=== PATIENT | female | born 1930 | race Caucasian/White ===

== ENCOUNTER 2017-05-10 15:59 | Emergency (ER) | payer BC, OTHER ==
[2017-05-10 16:02] VITALS: BP 133/87
--- NOTE | 2017-05-10 16:03 | EDM.PDOC ---
ED HPI GENERAL MEDICAL PROBLEM - General Chief Complaint: Upper Extremity Injury/Pain Stated Complaint: FELL, COMING BY [facility] Time Seen by Provider: 05/10/17 16:03 Source of Information: Reports: Patient, EMS, RN, RN Notes Reviewed History Limitations: Reports: No Limitations - History of Present Illness INITIAL COMMENTS - FREE TEXT/NARRATIVE: Patient states she was at [facility] on a bus trip, when she missed the stool she was attempting to sit on. She states she did not hit her head, and did not lose consciousness. She denies headache, N/V, SOB, CP. States pain is in the left shoulder and upper left arm. Pain is rated at 8/10. Onset: Today, Sudden Onset Date: 05/10/17 Location: Reports: Upper Extremity, Left Quality: Reports: Sharp, Stabbing Improves with: Reports: None Worsens with: Reports: Movement Associated Symptoms: Reports: No Other Symptoms Left Upper Arm Pain Score (Numeric/FACES): 8 - Related Data Allergies Allergy/AdvReac Type Severity Reaction Status Date / Time codeine Allergy Chest Pain Verified 05/10/17 16:00 Sulfa (Sulfonamide Allergy Hives Verified 05/10/17 16:00 Antibiotics) Home Meds: Home Meds Aspirin [Ecotrin] 81 mg PO DAILY 05/10/17 [History] Hydrochlorothiazide 12.5 mg PO DAILY 05/10/17 [History] Rosuvastatin [Crestor] 10 mg PO DAILY 05/10/17 [History] Review of Systems - Review of Systems Review Of Systems: ROS reveals no pertinent complaints other than HPI. ED EXAM, GENERAL - Physical Exam Exam: See Below Exam Limited By: No Limitations General Appearance: Alert, WD/WN, Moderate Distress Eye Exam: Bilateral Eye: Normal Inspection Ears: Normal External Exam, Hearing Grossly Normal Nose: Normal Inspection Throat/Mouth: Normal Inspection, Normal Lips, Normal Teeth, Normal Gums, Normal Voice, No Airway Compromise Head: Atraumatic, Normocephalic Neck: Normal Inspection, Supple, Non-Tender, Full Range of Motion Respiratory/Chest: No Respiratory Distress, Lungs Clear, Normal Breath Sounds, No Accessory Muscle Use, Chest Non-Tender Cardiovascular: Normal Peripheral Pulses, Regular Rate, Rhythm, No Edema, No Gallop, No JVD, No Murmur, No Rub Peripheral Pulses: 2+: Radial (L), Radial (R) GI/Abdominal: Normal Bowel Sounds, Soft, Non-Tender (Female) Exam: Deferred Rectal (Female) Exam: Deferred Back Exam: Normal Inspection, Full Range of Motion Extremities: Arm Pain (focal pain on upper left humerus, minimal swelling. ), Limited Range of Motion Neurological: Alert, Oriented, Normal Cognition, No Motor/Sensory Deficits Psychiatric: Normal Affect, Normal Mood Skin Exam: Warm, Intact, Normal Color, No Rash Lymphatic: No Adenopathy ED TRAUMA EXTREMITY PROCEDURES - Splinting Left Upper Extremity Pre-Procedure NV Status: Normal Post-Procedure NV Status: Normal Splint Material: Sling Splint Design: Sling Applied & Form Fitted By: Provider, Nurse Provider Post-Splint Application NV Check: NV Status Normal, Good Position Complications: No Course - Vital Signs Last Recorded V/S: Last Vital Signs Temp 97.7 F 05/10/17 16:00 Pulse 102 H 05/10/17 16:00 Resp 16 05/10/17 16:00 BP 133/87 05/10/17 16:00 Pulse Ox 98 05/10/17 16:00 - Orders/Labs/Meds Meds: Medications Discontinued Medications Generic Name Dose Route Start Last Admin Trade Name Freq PRN Reason Stop Dose Admin Oxycodone/Acetaminophen 1 tab 05/10/17 17:37 Percocet 325-5 Mg PO 05/10/17 17:38 ONETIME ONE - Radiology Interpretation Free Text/Narrative:: Left complete shoulder: Acute, comminuted, humeral head and neck fractures. See rad report Departure - Departure Time of Disposition: 17:39 Disposition: Home, Self-Care 01 Condition: Fair Clinical Impression: Fracture of humerus Qualifiers: Encounter type: initial encounter Humerus Location: proximal Fracture type: closed Fracture morphology: other fracture Fracture alignment: nondisplaced Laterality: left Qualified Code(s): S42.295A - Other nondisplaced fracture of upper end of left humerus, initial encounter for closed fracture - Discharge Information Instructions: How to Use a Sling, [id number], Pain Medicine Instructions, [id number], Humerus Fracture Treated With Immobilization, [id number] Forms: ED Department Discharge Additional Instructions: Percocet 325-5: 1 tab every 8 hours as needed for pain. Make an appointment with you orthopedic doctor when you get home. Keep arm in the sling except for showering. Follow up with your primary care facility.
--- NOTE | 2017-05-10 16:45 | CR ---
Clinical history: 86-year-old female with left shoulder pain, after a fall. Interpretation: AP (internal rotation humerus) and transthoracic views of the left humerus abnormal. Comminuted left humeral head and neck fractures with long bone impaction, anteriorly. No associated dislocation of the humeral head from the glenoid of the scapula. The ipsilateral acromi al-clavicular joint is intact. No distal long bone humeral fractures or dislocation of the elbow joint. Ipsilateral ribs and left he mithorax unremarkable. CONCLUSION: Acute, comminuted, left humeral head and neck fractures.
[2017-05-10] MEDS ORDERED: Acetaminophen/oxyCODONE 325-5 MG Tab PO ONE (17:37)
== END 2017-05-10 18:00 | disposition home or self-care (01) ==
LOC: DL.ED 15:59
DX: S42.295A Other nondisplaced fracture of upper end of left humerus, initial encounter for closed fracture (principal); S42.212A Unspecified displaced fracture of surgical neck of left humerus, initial encounter for closed fracture; Z79.82 Long term (current) use of aspirin; Z79.899 Other long term (current) drug therapy; Z88.5 Allergy status to narcotic agent; Z88.2 Allergy status to sulfonamides; W07.XXXA Fall from chair, initial encounter; Y92.59 Other trade areas as the place of occurrence of the external cause
CPT/HCPCS: 73060; 99283; A9270